=== PATIENT | female | born 1995 | race Caucasian/White ===

== ENCOUNTER 2018-12-04 18:45 | Emergency (ER) | payer SELFPAY ==
[~2018-12-04] VITALS: Ht 160 cm; Wt 59.0 kg
== END 2018-12-04 20:43 | disposition home or self-care (01) ==
LOC: ED 18:45
DX: B27.90 Infectious mononucleosis, unspecified without complication (principal); F17.200 Nicotine dependence, unspecified, uncomplicated; Z88.5 Allergy status to narcotic agent